=== PATIENT | male | born 1970 | race Caucasian/White ===

== ENCOUNTER 2020-06-28 03:20 | Inpatient (IN) | payer OTHER, SELFPAY ==
[2020-06-28] VITALS (9 sets, daily range): BP systolic 107–155; BP diastolic 66–79; PULSE 87–103; RESP 16–18; TEMP 36.4–36.9; O2SAT 94–97; BMI 40.4
--- NOTE | ~2020-06-28 | XR_ITS ---
EXAMINATION: XR ANKLE, RIGHT CLINICAL INFORMATION: Fall COMPARISON: None TECHNIQUE: AP, lateral, and mortise views of the right ankle. FINDINGS: There is disruption of the ankle mortise with marked widening of the medial clear space to approximately 2.6 cm. There is an oblique fracture of the distal fibular diaphysis with lateral displacement of the distal fragment. Surrounding soft tissue swelling is present. There are mild degenerative changes in the tarsal bones. XR/XR ankle RT min 3V IMPRESSION: Disruption of the ankle mortise with marked widening of the medial clear space. Angulated fracture of the distal fibula.
--- NOTE | ~2020-06-28 | XR_ITS ---
EXAMINATION: XR ANKLE, RIGHT CLINICAL INFORMATION: Post splint reduction COMPARISON: Radiographs from earlier today TECHNIQUE: AP, lateral, and mortise views of the right ankle. FINDINGS: Overlying cast material obscures fine bony detail. There is decreased widening of the medial clear space compared to prior, now approximately 1.6 cm versus 2.6 cm previously. Improved alignment across the oblique fracture of the distal fibula compared to prior. XR/XR ankle RT min 3V IMPRESSION: Interval decrease in widening of the medial clear space compared to prior. Improved alignment across the distal fibular fracture.
--- NOTE | ~2020-06-28 | FL_ITS ---
EXAMINATION: XR FLUOROSCOPY WITH IMAGES CLINICAL INFORMATION: Right ankle fracture COMPARISON: 06/28/2020 TECHNIQUE: Fluoroscopy performed by Dr. Nelson Instr. Fluoroscopy time: 12.9 seconds DAP: 16522.4 mGycm2 Images: 2 FINDINGS: Fluoroscopic images show lateral plate and screw fixation hardware with 2 separate cannulated screws transfixing the distal fibular fracture. There is near-anatomic alignment. FL/FL guidance in OR IMPRESSION: Fluoroscopic guidance for internal fixation of the distal fibular fracture with near-anatomic alignment. Please refer to operative report for further information.
--- NOTE | ~2020-06-28 | XR_ITS ---
EXAMINATION: XR ANKLE, RIGHT CLINICAL INFORMATION: Fracture post repeat reduction COMPARISON: 06/28/2020 TECHNIQUE: 2 views of the right ankle. FINDINGS: Overlying cast material is redemonstrated. Widening of the ankle mortise measures 2.0 cm, increased from 1.6 cm on the most recent exam. Displacement across the oblique fracture of the distal fibula has increased from the most recent prior exam. XR/XR ankle RT 2V IMPRESSION: Compared to the most recent prior exam there is increased widening of the medial clear space and displacement across the distal fibular fracture.
--- NOTE | ~2020-06-28 | XR_ITS ---
EXAMINATION: XR ANKLE, RIGHT CLINICAL INFORMATION: Reduction COMPARISON: Radiographs from earlier today TECHNIQUE: 1 view of the right ankle. FINDINGS: Overlying cast material redemonstrated. Redemonstrated disruption of the ankle mortise with widening of the medial clear space to approximately 2.0 cm, without significant change from most recent prior. Slight displacement across the fracture of the distal fibular diaphysis is noted. XR/XR ankle RT min 3V IMPRESSION: Similar appearance of widening of the ankle mortise compared to most recent prior.
--- NOTE | 2020-06-28 03:37 | ED_ITS ---
HPI - Extremity Injury (Lower) General Chief Complaint: Extremity Injury, Lower Stated Complaint: ankle pain/etoh Time Seen by Provider: 06/28/20 03:27 Source: patient and EMS Mode of arrival: EMS Limitations: no limitations History of Present Illness HPI Narrative: mechanical fall - injuried R ankle, no other injury reported at this time. complaint: ankle injury Onset (ago): minute(s) (just [employer]) Injury: Right: ankle Type of Injury: other (fall) Place: home Severity: moderate Relieving factors: nothing Exacerbating factors: weight bearing and movement Context: fall Associated symptoms: snap/pop sensation Other symptoms: none Related Data Allergies Allergy/AdvReac Type Severity Reaction Status Date / Time penicillin V Allergy Unknown Rash Verified 06/28/20 03:32 PCN Allergy Unknown rash Uncoded 06/28/20 03:32 Review of Systems Review of Systems: Constitutional : No Fever, No Chills ENT/Mouth : No Ear Pain, No Hoarseness, No sore throat Eyes: No Eye Pain, No Swelling, No Redness, No Foreign Body Cardiovascular : No Chest Pain, No SOB Respiratory : No Cough, No Dyspnea Gastrointestinal : No Nausea, No Vomiting, No Diarrhea, No abdominal Pain Genitourinary : No Dysuria, No Hematuria Musculoskeletal : positive joint pain, No Myalgias, No Joint Swelling Skin : No Skin lacerations, No rash Neuro : No Weakness, No Numbness, No Loss of Consciousness, No Dizziness, No Headache Psych : No Anxiety/Panic, No Depression Heme/Lymph: no easy bruising, no Lymphadenopathy Endocrine : No Polyuria, No Polydipsia All other systems reviewed and are negative FORMERLY [facility], [facility] Past Medical History Medical History Type 2 diabetes mellitus Social History Social History (Updated 06/28/20 @ 03:44 by June Castellanos DO) Alcohol intake: current Smoking Status: Never smoker Substance Use Type: Marijuana Advance Directives: No Advance Directives Information Provided: No Physical Exam Vital Signs: Vital Signs: Last Vital Signs Temp 97.5 F 06/28/20 03:27 Pulse 96 06/28/20 03:27 Resp 18 06/28/20 03:27 BP 129/73 06/28/20 03:27 Pulse Ox 96 06/28/20 03:27 Body Mass Index 40.4 Appearance: Alert. Oriented X3. No acute distress. Eyes: Pupils equal, round and reactive to light. ENT: Pharynx normal. Neck: Normal inspection. Neck supple. CVS: Normal heart rate and rhythm. Pulses normal. Respiratory: No respiratory distress. Breath sounds normal. Abdomen: Soft and nontender. Skin: Skin warm and dry. Normal skin color. Normal skin turgor. Extremities: R ankle moderate swelling, distal NV intact, bounding DP pulse, swelling moderate at bilateral malleoli, no prox fib ttp Neuro: Oriented X 3. No motor deficit. No sensory deficit. Course Course Course Narrative: adjusted splint to try to align mortise better. Kush PA will admit patient Procedures Orthopedic Fracture Reduction Fracture #1: Time Out Performed: Yes Side: right Fracture Reduction Location: other (ankle) Analgesia: other (IV dilaudid) Technique: direct manipulation Post Reduction X-rays Demonstrate: acceptable reduction Post-reduction neuro exam: intact Post-reduction vascular exam: intact Splint Applied: Yes Patient Tolerated Procedure: well Orthopedic Splinting/Casting Injury #1: Side: right Lower Extremity Injury Location: ankle Lower Extremity Immobilizer: posterior splint and stirrup splint MDM - Extremity Injury (Lower) MDM Narrative Medical decision making narrative: 50 yo male had mechanical fall tonight while going to bathroom c/o isolated R ankle injury - NV intact at this time will need labs, xray, IV pain medications will reduce ankle in ED Lab Data Result diagrams: 06/28/20 03:47 06/28/20 03:47 Labs: Lab Results 06/28/20 06/28/20 06/28/20 Range/Units 03:47 03:47 03:47 WBC 8.6 (4.8-10.8) X10*3/uL RBC 4.84 (4.60-5.80) X10*6/uL Hgb 15.2 (14.0-18.0) g/dl Hct 43.1 (42-52) % MCV 89.0 (80-98) fL MCH 31.4 (27.0-33.0) pg MCHC 35.3 (31.0-36.0) g/dl RDW 12.9 (11.0-16.0) % Plt Count 280 (160-400) X10*3/uL MPV 9.3 L (9.4-12.4) fL Immature Gran % (Auto) 1.3 H (0.0-0.4) % Neut % (Auto) 66.6 (45-73) % Lymph % (Auto) 22.1 (20-40) % [place] % (Auto) 6.2 (2-11) % Eos % (Auto) 3.3 (0-4) % Baso % (Auto) 0.5 (0-2) % Lymph # (Auto) 1.9 (1.2-4.9) X10*3/uL [place] # (Auto) 0.5 (0.1-1.2) X10*3/uL Eos # (Auto) 0.3 (0.0-0.4) X10*3/uL Baso # (Auto) 0.0 (0.0-0.2) X10*3/uL Abs Immat Gran (auto) 0.11 H (0.00-0.03) X10*3/uL Absolute Neuts (auto) 5.7 (2.0-8.3) X10*3/uL Absolute Nucleated RBC 0.000 (0.0-0.012) X10*3/uL Nucleated RBC % (auto) 0.0 (0.0-0.2) /100WBC PT (10.8-13.0) SEC INR (0.9-1.1) APTT (24.1-38.0) SEC Sodium 136 (135-145) mmol/L Potassium 3.4 (3.3-5.1) mmol/L Chloride 99 (96-108) mmol/L Carbon Dioxide 19 L (22-29) mmol/L Anion Gap 19 (12-20) BUN 11 (9-16) mg/dL Creatinine 0.81 (0.5-1.4) mg/dL Estim Creat Clear Calc 142.1 Estimated GFR > 60 Random Glucose 202 H (60-115) mg/dL Calcium 8.5 (8.4-10.2) mg/dL COVID-19 (OZ) Negative (Negative) COVID-19 Clin Com See Note 06/28/20 Range/Units 03:47 WBC (4.8-10.8) X10*3/uL RBC (4.60-5.80) X10*6/uL Hgb (14.0-18.0) g/dl Hct (42-52) % MCV (80-98) fL MCH (27.0-33.0) pg MCHC (31.0-36.0) g/dl RDW (11.0-16.0) % Plt Count (160-400) X10*3/uL MPV (9.4-12.4) fL Immature Gran % (Auto) (0.0-0.4) % Neut % (Auto) (45-73) % Lymph % (Auto) (20-40) % [place] % (Auto) (2-11) % Eos % (Auto) (0-4) % Baso % (Auto) (0-2) % Lymph # (Auto) (1.2-4.9) X10*3/uL [place] # (Auto) (0.1-1.2) X10*3/uL Eos # (Auto) (0.0-0.4) X10*3/uL Baso # (Auto) (0.0-0.2) X10*3/uL Abs Immat Gran (auto) (0.00-0.03) X10*3/uL Absolute Neuts (auto) (2.0-8.3) X10*3/uL Absolute Nucleated RBC (0.0-0.012) X10*3/uL Nucleated RBC % (auto) (0.0-0.2) /100WBC PT 11.5 (10.8-13.0) SEC INR 1.0 (0.9-1.1) APTT 39.8 H (24.1-38.0) SEC Sodium (135-145) mmol/L Potassium (3.3-5.1) mmol/L Chloride (96-108) mmol/L Carbon Dioxide (22-29) mmol/L Anion Gap (12-20) BUN (9-16) mg/dL Creatinine (0.5-1.4) mg/dL Estim Creat Clear Calc Estimated GFR Random Glucose (60-115) mg/dL Calcium (8.4-10.2) mg/dL COVID-19 (OZ) (Negative) COVID-19 Clin Com Discharge Plan Discharge Clinical Impression: Ankle sprain and strain, Closed fibular fracture, Ankle ligament laxity Patient Disposition: Admitted As Inpatient Instructions: Ankle Fracture (ED) Additional Instructions: no weight bearing wear splint until released
[2020-06-28 03:57] LABS: MANUAL DIFF FLAG NO
[2020-06-28 03:58] LABS: Basophils Percent Auto 0.5 % (0-2); Eosinophils Absolute Auto 0.3 X10*3/uL (0.0-0.4); Eosinophils Percent Auto 3.3 % (0-4); Hematocrit 43.1 % (42-52); Hemoglobin 15.2 g/dl (14.0-18.0); Imm Gran Abs Auto 0.11 X10*3/uL (0.00-0.03); Imm Gran Pct Auto 1.3 % (0.0-0.4); Lymphocytes Absolute Auto 1.9 X10*3/uL (1.2-4.9); Lymphocytes Percent Auto 22.1 % (20-40); Mean Corpuscular HGB Conc 35.3 g/dl (31.0-36.0); Mean Corpuscular Hemoglobin 31.4 pg (27.0-33.0); Mean Platelet Volume 9.3 fL (9.4-12.4); Monocytes Absolute Auto 0.5 X10*3/uL (0.1-1.2); Monocytes Percent Auto 6.2 % (2-11); Neutrophils Absolute Auto 5.7 X10*3/uL (2.0-8.3); Neutrophils Percent Auto 66.6 % (45-73); Platelet Count 280 X10*3/uL (160-400); Red Blood Count 4.84 X10*6/uL (4.60-5.80); Red Cell Distribution Width 12.9 % (11.0-16.0); White Blood Count 8.6 X10*3/uL (4.8-10.8)
[2020-06-28 04:04] LABS: Prothrombin Time 11.5 SEC (10.8-13.0)
[2020-06-28 04:06] LABS: Partial Thromboplastin Time 39.8 SEC (24.1-38.0)
[2020-06-28 04:10] LABS: COVID-19 Test Negative (Negative)
[2020-06-28 04:24] LABS: Blood Urea Nitrogen 11 mg/dL (9-16); Calcium 8.5 mg/dL (8.4-10.2); Carbon Dioxide 19 mmol/L (22-29); Creatinine Clr Calc Pharmacy 142.1; Estimated Glomerular Filt Rate > 60; Glucose Random 202 mg/dL (60-115)
[2020-06-28] MEDS: HYDROmorphone HCl 1 MG/ML SYRINGE IVPUSH ×2 (04:42→06:22)
[2020-06-28] MEDS: ondansetron HCL 4 MG/2 ML VIAL IVPUSH ×2 (04:42→09:55)
[2020-06-28 04:44] LABS: Anion Gap 19 (12-20); Chloride 99 mmol/L (96-108); Potassium 3.4 mmol/L (3.3-5.1); Sodium 136 mmol/L (135-145)
--- NOTE | 2020-06-28 06:11 | PC.NURSE ---
Assisted roberto Lopez with an ankle reduction .this tech applied a posterior and a sugar tongue. splint. pt tolerated procedure well
--- NOTE | 2020-06-28 07:36 | PC.NURSE ---
Late Entry: Since arrival to ED, patient has had right ankle reset 3 times with posterior & sugar splint, applied by this RN, Kenzie (PCT), and with x-ray following each adjustment. Pt tolerated all 3 procedures well, and remains calm/cooperative/pleasant, with maximum of 3 out of 10 pain. Medicated twice with Dilaudid 1mg each, as scanned/documented in EMAR. Vitals stable, remains alert & oriented. Aware of plan to admit with plan for surgery. Admission orders in place, now NPO until further notice. Pt had water while in ED, last drank water around 6am. No food while in ED. Pt aware of NPO status starting now. RN to RN report given to JOSE Handy.
[2020-06-28] MEDS: oxyCODONE HCl Immed Release 5 MG TABLET 10 MG PO ×3 (09:53→21:12)
--- NOTE | 2020-06-28 10:07 | P.HPOP_ITS ---
History of Present Illness History of Present Illness Date of Service: 06/28/20 Chief complaint: Right ankle fracture Narrative: Esequiel Ramirez is a 50 year old male who presented to the ED s/p ankle injury at home. He states he was standing in the kitchen, he does not recall twisting the ankle, but states he was standing and as he shifted his weight he fell. He noticed immediate deformity and pain. Upon examination in the ED along with xrays he was found to have a distal fibular fracture with disruption of the nakle mortise. Reduction performed in the ED with continued instability of the fracture. Due to this the plan was to admit the patient to the orthopedic surgery for further workup and surgical planning. Review of Systems Review of Systems: Yes all other systems are reviewed and are negative PMFSH Past Medical History Medical History Type 2 diabetes mellitus Surgical History Surgical History (Updated 06/28/20 @ 10:11 by Darell Currie PA-C) History of tonsillectomy Social History Social History (Updated 06/28/20 @ 10:11 by Darell Currie PA-C) Alcohol intake: current Alcohol intake frequency: a few times a week Alcohol type: beer Smoking Status: Never smoker Smoked in Last 30 Days: No Use of substances other than those prescribed or required for medical reasons: No Substance Use Type: Marijuana Substance Use Frequency: Socially Advance Directives: No Advance Directives Information Provided: No Current occupational status: employed 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 Meds Allergies Allergy/AdvReac Type Severity Reaction Status Date / Time penicillin V Allergy Unknown Rash Verified 06/28/20 03:32 PCN Allergy Unknown rash Uncoded 06/28/20 03:32 Active Medications: Current Medications Generic Name Dose Route Start Last Admin Trade Name Freq PRN Reason Stop Dose Admin Acetaminophen 650 mg 06/28/20 09:43 Acetaminophen 325 Mg Tablet PO Q6H PRN Pain, Mild (Pain Scale 1-3) Docusate Sodium 100 mg 06/28/20 09:43 Docusate Sodium 100 Mg Capsule PO BID ARMAND Sodium Chloride 1,000 mls @ 80 mls/hr 06/28/20 09:43 IVCONT .[id number] ARMAND Morphine Sulfate 2 mg 06/28/20 09:43 Morphine Sulfate 2 Mg/Ml Cartridge IVPUSH Q2H PRN Pain, Severe (Pain Scale 7-10) Naloxone HCl 0.2 mg 06/28/20 09:43 Naloxone Hcl 0.4 Mg/Ml Vial IVPUSH Q2M PRN Excessive sedation or RR < 8 Ondansetron HCl 4 mg 06/28/20 09:43 06/28/20 09:55 Ondansetron Hcl 4 Mg/2 Ml Vial IVPUSH 4 mg Q8H PRN Administration Nausea Oxycodone HCl 10 mg 06/28/20 10:00 06/28/20 09:53 Oxycodone Hcl Immed Release 5 Mg Tablet PO 10 mg Q6H ARMAND Administration Sodium Chloride 3 ml 06/28/20 16:00 0.9 % Sodium Chloride Flush 3 Ml Syringe IVFLUSH [facility] Home Medications Medication Instructions Recorded Confirmed Last Taken Type albuterol sulfate 2 puff PO Q6H 06/28/20 06/28/20 Unknown History citalopram 0.5 tab PO DAILY 06/28/20 06/28/20 06/27/20 History metformin 1 tab PO BID 06/28/20 06/28/20 06/27/20 History Physical Exam Vital Signs: Vital Signs: Last Vital Signs Temp 97.5 F 06/28/20 03:27 Pulse 94 06/28/20 07:24 Resp 16 06/28/20 07:24 BP 111/67 06/28/20 07:24 Pulse Ox 94 06/28/20 07:24 Body Mass Index 40.4 Const: General: cooperative, healthy appearing, comfortable, no acute distress, well developed and alert Orientation/consciousness: patient o riented x3 HENMT: Head: Yes normal to inspection, Yes normocephalic and Yes atraumatic Eyes: General: appearance normal, both eyes and all related structures Neck: Neck: Yes normal visual inspection and Yes no lymphadenopathy Resp: Effort & Inspection: normal respiratory effort and able to speak in complete sentences Cardio: Rate: regular rate Peripheral pulses: Peripheral pulses 2+ throughout GI: Inspection: Yes normal to inspection Palpation (GI): Soft to palpation Skin: General skin exam: no rashes or lesions noted Neuro: General: patient oriented x3 Extrem: Other: Right ankle notable deformity and bruising with swelling over the ankle. No skin tenting. Sensation and pulses are intact. Right ankle xrays obtained today in ED: Disruption of the ankle mortise with marked widening of the medial clear space. Angulated fracture of the distal fibula. Psych: Appearance: grossly normal Mental Status: mental status grossly normal Results Labs Result Diagrams: 06/28/20 03:47 06/28/20 03:47 Labs: Abnormal lab results 06/28/20 06/28/20 06/28/20 Range/Units 03:47 03:47 03:47 MPV 9.3 L (9.4-12.4) fL Immature Gran % (Auto) 1.3 H (0.0-0.4) % Abs Immat Gran (auto) 0.11 H (0.00-0.03) X10*3/uL APTT 39.8 H (24.1-38.0) SEC Carbon Dioxide 19 L (22-29) mmol/L Random Glucose 202 H (60-115) mg/dL H & H 06/28/20 Range/Units 03:47 Hgb 15.2 (14.0-18.0) g/dl Hct 43.1 (42-52) % Coagulation 06/28/20 Range/Units 03:47 INR 1.0 (0.9-1.1) All other labs normal. Assessment and Plan (1) Closed fibular fracture: Qualifiers: Encounter type: initial encounter Fibula location: distal Fracture morphology: other fracture Laterality: right Qualified Code(s): S82.831A - Other fracture of upper and lower end of right fibula, initial encounter for closed fracture Status: Acute I discussed the case with Dr Ramsay and explained the extent of the injury to the patient and options available which include surgical intervention. I explained the procedure in detail along with the length of recovery and rehab course. I explained the risk, benefits and alternatives. Risk including, but not limited to infection, blood clots, bleeding, non union or malunion and nerve/tissue damage to surrounding areas. I explained the role Diabetes plays on wound healing. I answered all their questions and with their understanding they have consented to move forward with Operative Fixation of the right ankle . The patient have med clearance obtained and NPO after midnight. Patient states PCN allergy was as a kid=rash Procedures Date of Service Date of Service: 06/28/20
[2020-06-28 10:25] LABS: Glucose, Whole Blood 178 mg/dL (60-115)
[2020-06-28] MEDS: Sodium Chloride 0.45 % 1,000 ML 80 ML IVCONT ×2 (10:36→22:00)
--- NOTE | 2020-06-28 11:51 | PM.IMCN ---
History of Present Illness Data of Consult Service Date: 06/28/20 Requesting physician: Darell Currie Primary Care Provider: Pro Manrique MD [facility] Reason for consult: Medical Management 50-year-old man with history of diabetes mellitus, obesity presents after a stopping follow home. He reports that he was cooking some dumplings and suddenly turned wrong and fell to the ground. He denied any loss of consciousness or injury to his head. He reports he had been in his usual state of health recently. He denies chest pain, shortness of breath, nausea, vomiting, diarrhea, headache. Ankle x-ray showed angulated fracture of the distal fibula. Labs all within acceptable limits, vital signs stable though he was noted to be mildly tachycardic and hypertensive likely related to pain. Review of Systems Review of Systems: Denies any recent fever chills or decrease in appetite respiratory denies any shortness of breath coverage production cardiovascular is adjustment of any PND or edema gastrointestinal denies any dysphagia abdominal pain nausea vomiting or diarrhea genitourinary denies any dysuria frequency or hematuria musculoskeletal right ankle pain neuropsych denies any weakness or seizures all other systems reviewed are negative FORMERLY [facility] Medical History (Updated 06/28/20 @ 11:55 by Mary Maravilla NP) Type 2 diabetes mellitus Family History (Updated 06/28/20 @ 11:56 by Mary Maravilla NP) Father Myocardial infarction Surgical History (Updated 06/28/20 @ 10:11 by Darell Currie PA-C) History of tonsillectomy Social History (Updated 06/28/20 @ 10:11 by Darell Currie PA-C) Household Members: Family Housing: Apartment Do you presently have visiting nurse or other home services: No Alcohol intake: current Alcohol intake frequency: a few times a week Alcohol type: beer Smoking Status: Never smoker Smoked in Last 30 Days: No Use of substances other than those prescribed or required for medical reasons: No Substance Use Type: Marijuana Substance Use Frequency: Occasionally Last Used Substance: Days (ago) Last Used Substance Other:: 06/27/20 Currently Displaying Signs/Symptoms of Drug Intoxication Withdrawal: No Any prior treatment program specific to substance use: No Have you been hit, kicked, punched, or otherwise hurt by someone within the past year? 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 Meds Allergies Allergy/AdvReac Type Severity Reaction Status Date / Time penicillin V Allergy Unknown Rash Verified 06/28/20 03:32 PCN Allergy Unknown rash Uncoded 06/28/20 03:32 Active Medications: Current Medications Generic Name Dose Route Start Last Admin Trade Name Freq PRN Reason Stop Dose Admin Acetaminophen 650 mg 06/28/20 09:43 Acetaminophen 325 Mg Tablet PO Q6H PRN Pain, Mild (Pain Scale 1-3) Docusate Sodium 100 mg 06/28/20 09:43 06/28/20 10:37 Docusate Sodium 100 Mg Capsule PO Not Given BID ARMAND Sodium Chloride 1,000 mls @ 80 mls/hr 06/28/20 09:43 06/28/20 10:36 IVCONT 80 mls/hr .[id number] ARMAND Administration Cefazolin Sodium/Dextrose 2 gm in 50 mls @ 100 mls/hr 06/29/20 09:38 Ancef IV 06/29/20 10:07 PREOP ONE Morphine Sulfate 2 mg 06/28/20 09:43 Morphine Sulfate 2 Mg/Ml Cartridge IVPUSH Q2H PRN Pain, Severe (Pain Scale 7-10) Naloxone HCl 0.2 mg 06/28/20 09:43 Naloxone Hcl 0.4 Mg/Ml Vial IVPUSH Q2M PRN Excessive sedation or RR < 8 Ondansetron HCl 4 mg 06/28/20 09:43 06/28/20 09:55 Ondansetron Hcl 4 Mg/2 Ml Vial IVPUSH 4 mg Q8H PRN Administration Nausea Oxycodone HCl 10 mg 06/28/20 10:00 06/28/20 09:53 Oxycodone Hcl Immed Release 5 Mg Tablet PO 10 mg Q6H ARMAND Administration Sodium Chloride 3 ml 06/28/20 16:00 0.9 % Sodium Chloride Flush 3 Ml Syringe IVFLUSH QSHIFT [facility] Home Medications Medication Instructions Recorded Confirmed Last Taken Type albuterol sulfate 2 puff PO Q6H 06/28/20 06/28/20 Unknown History citalopram 0.5 tab PO DAILY 06/28/20 06/28/20 06/27/20 History metformin 1 tab PO BID 06/28/20 06/28/20 06/27/20 History Physical Exam Vital Signs and Narrative: Vital Signs: Last Vital Signs Temp 98.5 F 06/28/20 10:16 Pulse 103 H 06/28/20 10:16 Resp 18 06/28/20 10:16 BP 155/79 H 06/28/20 10:16 Pulse Ox 97 06/28/20 10:16 Body Mass Index 40.4 Appearing in no acute distress head is normocephalic atraumatic eyes pupils are PERRLA sclera is anicteric mouth throat mucous membranes are intact and moist neck is supple no lymphadenopathy, no JVD noted lung sounds are clear to auscultation heart regular rate rhythm, clear S1, S2 positive bowel sounds, abdomen is soft, nontender neuro patient is alert x3, no focal deficits musculoskeletal right leg protective wrapping Results Labs CBC and Chem 7: 06/28/20 03:47 06/28/20 03:47 Labs: Laboratory Results - last 24 hr 06/28/20 06/28/20 06/28/20 03:47 03:47 03:47 MCV 89.0 MCH 31.4 MCHC 35.3 RDW 12.9 Plt Count 280 MPV 9.3 L Immature Gran % (Auto) 1.3 H Neut % (Auto) 66.6 Lymph % (Auto) 22.1 [place] % (Auto) 6.2 Eos % (Auto) 3.3 Baso % (Auto) 0.5 Lymph # (Auto) 1.9 [place] # (Auto) 0.5 Eos # (Auto) 0.3 Baso # (Auto) 0.0 Abs Immat Gran (auto) 0.11 H Absolute Neuts (auto) 5.7 Absolute Nucleated RBC 0.000 Nucleated RBC % (auto) 0.0 PT INR APTT Anion Gap 19 Estim Creat Clear Calc 142.1 Estimated GFR > 60 POC Glucose Random Glucose 202 H Calcium 8.5 COVID-19 (OZ) Negative COVID-19 Clin Com See Note 06/28/20 06/28/20 03:47 10:19 MCV MCH MCHC RDW Plt Count MPV Immature Gran % (Auto) Neut % (Auto) Lymph % (Auto) [place] % (Auto) Eos % (Auto) Baso % (Auto) Lymph # (Auto) [place] # (Auto) Eos # (Auto) Baso # (Auto) Abs Immat Gran (auto) Absolute Neuts (auto) Absolute Nucleated RBC Nucleated RBC % (auto) PT 11.5 INR 1.0 APTT 39.8 H Anion Gap Estim Creat Clear Calc Estimated GFR POC Glucose 178 H Random Glucose Calcium COVID-19 (OZ) COVID-19 Clin Com Imaging Radiologist's Impressions: Impressions Ankle X-Ray 06/28/20 03:27 IMPRESSION: Disruption of the ankle mortise with marked widening of the medial clear space. Angulated fracture of the distal fibula. Ankle X-Ray 06/28/20 04:37 IMPRESSION: Interval decrease in widening of the medial clear space compared to prior. Improved alignment across the distal fibular fracture. Ankle X-Ray 06/28/20 06:01 IMPRESSION: Compared to the most recent prior exam there is increased widening of the medial clear space and displacement across the distal fibular fracture. Ankle X-Ray 06/28/20 06:30 IMPRESSION: Similar appearance of widening of the ankle mortise compared to most recent prior. Assessment and Plan (1) Obesity: Status: Acute 50-year-old man with history of diabetes mellitus, obesity admitted by Orthopedic surgery for right ankle fracture. He will will be taken to the OR tomorrow for likely ORIF. Ankle fracture. Management as per surgical team. Pain management. Diabetes mellitus. Sliding scale, ADA diet, NPO after midnight. Hold metformin for now. Obesity. BMI 40.5. Discussed the importance of weight loss to avoid exacerbation of other medical illnesses. Alcohol use. Patient reports drinking 6-10 beers every other day denies any withdrawal history however will place patient on CIWA protocol. If patient exhibits signs of active withdrawal consider phenobarbital protocol. DVT prophylaxis with mechanical compression boots as per surgical team. Discussed with Dr. Gian Burk code
[2020-06-28 12:06] LABS: Glucose, Whole Blood 184 mg/dL (60-115)
[2020-06-28] MEDS: Insulin Lispro 100 UNIT/ML 3 ML VIAL SUBCUT ×3 (12:20→21:13)
[2020-06-28 15:00] LABS: Glucose, Whole Blood 167 mg/dL (60-115)
[2020-06-28] MEDS: Morphine Sulfate 2 MG/ML CARTRIDGE IVPUSH ×2 (15:28→19:43)
[2020-06-28 16:29] LABS: Glucose, Whole Blood 179 mg/dL (60-115)
[2020-06-28 20:28] LABS: Glucose, Whole Blood 157 mg/dL (60-115)
[2020-06-28] MEDS: Docusate Sodium 100 MG CAPSULE PO (21:12)
[2020-06-29] VITALS (15 sets, daily range): BP systolic 104–141; BP diastolic 53–83; PULSE 78–101; RESP 16–20; TEMP 36.2–37.4; O2SAT 93–98; BMI 40.4
[2020-06-29] MEDS: Morphine Sulfate 2 MG/ML CARTRIDGE IVPUSH ×5 (00:17→19:48)
[2020-06-29 06:34] LABS: MANUAL DIFF FLAG NO
[2020-06-29 06:47] LABS: Basophils Percent Auto 0.3 % (0-2); Eosinophils Absolute Auto 0.1 X10*3/uL (0.0-0.4); Eosinophils Percent Auto 1.1 % (0-4); Hematocrit 40.3 % (42-52); Hemoglobin 13.8 g/dl (14.0-18.0); Imm Gran Abs Auto 0.07 X10*3/uL (0.00-0.03); Imm Gran Pct Auto 0.6 % (0.0-0.4); Mean Corpuscular HGB Conc 34.2 g/dl (31.0-36.0); Mean Corpuscular Hemoglobin 30.8 pg (27.0-33.0); Mean Platelet Volume 9.4 fL (9.4-12.4); Monocytes Absolute Auto 0.9 X10*3/uL (0.1-1.2); Monocytes Percent Auto 8.4 % (2-11); Neutrophils Absolute Auto 8.8 X10*3/uL (2.0-8.3); Neutrophils Percent Auto 80.6 % (45-73); Platelet Count 268 X10*3/uL (160-400); Red Blood Count 4.48 X10*6/uL (4.60-5.80); Red Cell Distribution Width 13.2 % (11.0-16.0); White Blood Count 10.9 X10*3/uL (4.8-10.8)
[2020-06-29 06:59] LABS: Blood Urea Nitrogen 6 mg/dL (9-16); Calcium 8.8 mg/dL (8.4-10.2); Creatinine Clr Calc Pharmacy 138.7; Estimated Glomerular Filt Rate > 60; Glucose Fasting 181 mg/dL (60-99)
[2020-06-29 07:17] LABS: Anion Gap 12 (12-20); Carbon Dioxide 28 mmol/L (22-29); Chloride 100 mmol/L (96-108); Potassium 4.8 mmol/L (3.3-5.1); Sodium 135 mmol/L (135-145)
[2020-06-29] MEDS: 0.9 % Sodium Chloride Flush 3 ML SYRINGE IVFLUSH (07:36)
[2020-06-29 07:46] LABS: Glucose, Whole Blood 179 mg/dL (60-115)
[2020-06-29] MEDS: oxyCODONE HCl Immed Release 5 MG TABLET 10 MG PO ×3 (09:23→21:15)
[2020-06-29] MEDS: Sodium Chloride 0.45 % 1,000 ML 80 ML IVCONT (09:24)
--- NOTE | 2020-06-29 09:50 | MHC.SHP ---
Pre-Procedural Eval Section A The patient is an INPATIENT: Yes Section B Chief Complaint: Right ankle fracture Allergies: Allergies Allergy/AdvReac Type Severity Reaction Status Date / Time penicillin V Allergy Unknown Rash Verified 06/28/20 03:32 PCN Allergy Unknown rash Uncoded 06/28/20 03:32 Plan I have reviewed the history and physical and performed a pertinent physical examination on my patient. No changes have occurred unless specified.
--- NOTE | 2020-06-29 10:13 | MHC.CM.PN ---
PATIENT LIVES ALONE. HIS MOTHER AND SISTER LIVE NEXT DOOR AND ARE AVAILABLE IF NEEDED UPON DISCHARGE. 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 CASE MANAGEMENT FOLLOWING FOR DISCHARGE PLANS.
--- NOTE | 2020-06-29 11:20 | HO.ANESPROP2 ---
[facility] Active Problems Active Problems: All Active Problems (Updated 06/28/20 @ 11:55 by Mary Maravilla NP) Obesity (Acute) Ankle sprain and strain (Acute) Closed fibular fracture (Acute) Ankle ligament laxity (Acute) Past Medical History Medical History Type 2 diabetes mellitus Family History Family History Father Myocardial infarction Surgical History Surgical History History of tonsillectomy Social History Social History Household Members: Family Housing: Apartment Do you presently have visiting nurse or other home services: No Alcohol intake: current Alcohol intake frequency: a few times a week Alcohol type: beer Smoking Status: Never smoker Smoked in Last 30 Days: No Use of substances other than those prescribed or required for medical reasons: No Substance Use Type: Marijuana Substance Use Frequency: Occasionally Last Used Substance: Days (ago) Last Used Substance Other:: 06/27/20 Currently Displaying Signs/Symptoms of Drug Intoxication Withdrawal: No Any prior treatment program specific to substance use: No Have you been hit, kicked, punched, or otherwise hurt by someone within the past year? 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 Meds Allergies Allergy/AdvReac Type Severity Reaction Status Date / Time penicillin V Allergy Unknown Rash Verified 06/28/20 03:32 PCN Allergy Unknown rash Uncoded 06/28/20 03:32 Active Medications: Current Medications Generic Name Dose Route Start Last Admin Trade Name Freq PRN Reason Stop Dose Admin Acetaminophen 650 mg 06/28/20 09:43 Acetaminophen 325 Mg Tablet PO Q6H PRN Pain, Mild (Pain Scale 1-3) Albuterol Sulfate 2 puff 06/29/20 08:45 06/29/20 09:12 Albuterol Sulfate 90 Mcg 8 Gm Inhaler INHALE Not Given Q6H [facility] Docusate Sodium 100 mg 06/28/20 09:43 06/29/20 07:36 Docusate Sodium 100 Mg Capsule PO Not Given BID [facility] Sodium Chloride 1,000 mls @ 80 mls/hr 06/28/20 09:43 06/29/20 09:24 IVCONT 80 mls/hr .[id number] [facility] Administration Insulin Human Lispro 0 unit 06/28/20 16:30 06/29/20 07:37 Insulin Lispro 100 Unit/Ml 3 Ml Vial SUBCUT Not Given QIDACHS [facility] Protocol Morphine Sulfate 2 mg 06/28/20 09:43 06/29/20 07:41 Morphine Sulfate 2 Mg/Ml Cartridge IVPUSH 2 mg Q2H PRN Administration Pain, Severe (Pain Scale 7-10) Naloxone HCl 0.2 mg 06/28/20 09:43 Naloxone Hcl 0.4 Mg/Ml Vial IVPUSH Q2M PRN Excessive sedation or RR < 8 Ondansetron HCl 4 mg 06/28/20 09:43 06/28/20 09:55 Ondansetron Hcl 4 Mg/2 Ml Vial IVPUSH 4 mg Q8H PRN Administration Nausea Oxycodone HCl 10 mg 06/28/20 10:00 06/29/20 09:23 Oxycodone Hcl Immed Release 5 Mg Tablet PO 10 mg Q6H [facility] Administration Ropinirole HCl 0.5 mg 06/29/20 21:00 Ropinirole Hcl 0.5 Mg Tablet PO BEDTIME [facility] Sodium Chloride 3 ml 06/28/20 16:00 06/29/20 07:36 0.9 % Sodium Chloride Flush 3 Ml Syringe IVFLUSH 3 ml QSHIFT [facility] Administration Home Medications Medication Instructions Recorded Confirmed Last Taken Type albuterol sulfate 2 puff PO Q6H 06/28/20 06/28/20 Unknown History citalopram 0.5 tab PO DAILY 06/28/20 06/28/20 06/27/20 History metformin 1 tab PO BID 06/28/20 06/28/20 06/27/20 History Exam Exam Date and Time: June 29, 2020 112 Height,Weight and Vital Signs: Height 5 ft 9 in Weight 124.284 kg Last Vital Signs Temp 97.6 F 06/29/20 07:40 Pulse 94 06/29/20 07:40 Resp 17 06/29/20 07:40 BP 135/54 L 06/29/20 07:40 Pulse Ox 94 06/29/20 07:40 Pertinent Lab Results Pertinent Lab Results: Laboratory Tests 06/28/20 06/28/20 06/28/20 03:47 03:47 03:47 WBC 8.6 RBC 4.84 Hgb 15.2 Hct 43.1 MCV 89.0 MCH 31.4 MCHC 35.3 RDW 12.9 Plt Count 280 MPV 9.3 L Immature Gran % (Auto) 1.3 H Neut % (Auto) 66.6 Lymph % (Auto) 22.1 [place] % (Auto) 6.2 Eos % (Auto) 3.3 Baso % (Auto) 0.5 Lymph # (Auto) 1.9 [place] # (Auto) 0.5 Eos # (Auto) 0.3 Baso # (Auto) 0.0 Abs Immat Gran (auto) 0.11 H Absolute Neuts (auto) 5.7 Absolute Nucleated RBC 0.000 Nucleated RBC % (auto) 0.0 PT INR APTT Sodium 136 Potassium 3.4 Chloride 99 Carbon Dioxide 19 L Anion Gap 19 BUN 11 Creatinine 0.81 Estim Creat Clear Calc 142.1 Estimated GFR > 60 POC Glucose Random Glucose 202 H Fasting Glucose Calcium 8.5 COVID-19 (OZ) Negative COVID-19 Clin Com See Note 06/28/20 06/28/20 06/28/20 03:47 10:19 12:02 WBC RBC Hgb Hct MCV MCH MCHC RDW Plt Count MPV Immature Gran % (Auto) Neut % (Auto) Lymph % (Auto) [place] % (Auto) Eos % (Auto) Baso % (Auto) Lymph # (Auto) [place] # (Auto) Eos # (Auto) Baso # (Auto) Abs Immat Gran (auto) Absolute Neuts (auto) Absolute Nucleated RBC Nucleated RBC % (auto) PT 11.5 INR 1.0 APTT 39.8 H Sodium Potassium Chloride Carbon Dioxide Anion Gap BUN Creatinine Estim Creat Clear Calc Estimated GFR POC Glucose 178 H 184 H Random Glucose Fasting Glucose Calcium COVID-19 (OZ) COVID-19 Clin Com 06/28/20 06/28/20 06/28/20 14:56 16:23 20:16 WBC RBC Hgb Hct MCV MCH MCHC RDW Plt Count MPV Immature Gran % (Auto) Neut % (Auto) Lymph % (Auto) [place] % (Auto) Eos % (Auto) Baso % (Auto) Lymph # (Auto) [place] # (Auto) Eos # (Auto) Baso # (Auto) Abs Immat Gran (auto) Absolute Neuts (auto) Absolute Nucleated RBC Nucleated RBC % (auto) PT INR APTT Sodium Potassium Chloride Carbon Dioxide Anion Gap BUN Creatinine Estim Creat Clear Calc Estimated GFR POC Glucose 167 H 179 H 157 H Random Glucose Fasting Glucose Calcium COVID-19 (OZ) COVID-19 [place] 06/29/20 06/29/20 06/29/20 06:11 06:11 07:38 WBC 10.9 H RBC 4.48 L Hgb 13.8 L Hct 40.3 L MCV 90.0 MCH 30.8 MCHC 34.2 RDW 13.2 Plt Count 268 MPV 9.4 Immature Gran % (Auto) 0.6 H Neut % (Auto) 80.6 H Lymph % (Auto) 9.0 L [place] % (Auto) 8.4 Eos % (Auto) 1.1 Baso % (Auto) 0.3 Lymph # (Auto) 1.0 L [place] # (Auto) 0.9 Eos # (Auto) 0.1 Baso # (Auto) 0.0 Abs Immat Gran (auto) 0.07 H Absolute Neuts (auto) 8.8 H Absolute Nucleated RBC 0.000 Nucleated RBC % (auto) 0.0 PT INR APTT Sodium 135 Potassium 4.8 D Chloride 100 Carbon Dioxide 28 Anion Gap 12 BUN 6 L Creatinine 0.83 Estim Creat Clear Calc 138.7 Estimated GFR > 60 POC Glucose 179 H Random Glucose Fasting Glucose 181 H Calcium 8.8 COVID-19 (OZ) COVID-19 [place] [employer] Mallampati Class: IV TM Dist: >3cm Neck ROM: Full Loose/Missing/Broken Teeth: No Heart: RRR Lungs: NL Other: long thick santana Assessment and Plan Assessment Anesthesia Assessment: Anesthesia Plan Discussed and Chart Reviewed Final Anesthetic Review NPO: Yes ASA Class: III Final Preanesthetic Review: No Changes in Pt Med Stat, Meds/Allgs Chart Reviewed, Consent Obtained/Reviewed and Anes Risks/Benef Reviewed Patient Risk: High Procedure Risk: Low Anesthetic Plan Anesthetic Plan: GA and Regional Block Disposition: Standard PACU
[2020-06-29 11:53] LABS: Glucose, Whole Blood 194 mg/dL (60-115)
[2020-06-29] MEDS: Lactated Ringers 1,000 ML 100 ML IVCONT (12:40)
--- NOTE | 2020-06-29 12:41 | P.PNIM_ITS ---
Subjective Subjective Date of Service: 06/29/20 Interval History: A the patient was seen and evaluated this morning Laying in bed, feels comfortable overall but complain of RLE pain Denies any fever, chills or shortness of breath No reported other overnight events. Systemic review: No fever, chills or weakness No chest pain, palpitation No shortness of breath or coughing No abdominal pain, nausea or vomiting No urinary symptoms No any rash or wounds Physical Exam Vital Signs: Vital Signs: Last Vital Signs Temp 97.7 F 06/29/20 12:12 Pulse 97 06/29/20 12:12 Resp 20 06/29/20 12:12 BP 141/80 H 06/29/20 12:12 Pulse Ox 96 06/29/20 12:12 Body Mass Index 40.4 Const: Other: Constitutional : Alert, oriented, not in distress Neck : Normal inspection, Supple Cardiovascular : RRR, S1 S2, no lower extremity edema Respiratory : Good bilateral air entry, no crackles, wheezes or rhonchi Gastrointestinal: soft, lax, Normal bowel sounds, Non tender Skin : Warm/Dry, No rash MS: RLE ankle in cast, warm toes Neurological : Alert & oriented x3, No focal deficit Objective Data Current Medications Generic Name Dose Route Start Last Admin Trade Name Freq PRN Reason Stop Dose Admin Acetaminophen 650 mg 06/28/20 09:43 Acetaminophen 325 Mg Tablet PO Q6H PRN Pain, Mild (Pain Scale 1-3) Albuterol Sulfate 2 puff 06/29/20 12:00 06/29/20 11:34 Albuterol Sulfate 90 Mcg 8 Gm Inhaler INHALE Not Given RQ6H [facility] Docusate Sodium 100 mg 06/28/20 09:43 06/29/20 07:36 Docusate Sodium 100 Mg Capsule PO Not Given BID [facility] Sodium Chloride 1,000 mls @ 80 mls/hr 06/28/20 09:43 06/29/20 09:24 IVCONT 80 mls/hr .[id number] [facility] Administration Insulin Human Lispro 0 unit 06/28/20 16:30 06/29/20 07:37 Insulin Lispro 100 Unit/Ml 3 Ml Vial SUBCUT Not Given QIDACHS [facility] Protocol Morphine Sulfate 2 mg 06/28/20 09:43 06/29/20 11:30 Morphine Sulfate 2 Mg/Ml Cartridge IVPUSH 2 mg Q2H PRN Administration Pain, Severe (Pain Scale 7-10) Naloxone HCl 0.2 mg 06/28/20 09:43 Naloxone Hcl 0.4 Mg/Ml Vial IVPUSH Q2M PRN Excessive sedation or RR < 8 Ondansetron HCl 4 mg 06/28/20 09:43 06/28/20 09:55 Ondansetron Hcl 4 Mg/2 Ml Vial IVPUSH 4 mg Q8H PRN Administration Nausea Oxycodone HCl 10 mg 06/28/20 10:00 06/29/20 09:23 Oxycodone Hcl Immed Release 5 Mg Tablet PO 10 mg Q6H [facility] Administration Ropinirole HCl 0.5 mg 06/29/20 21:00 Ropinirole Hcl 0.5 Mg Tablet PO BEDTIME [facility] Sodium Chloride 3 ml 06/28/20 16:00 06/29/20 07:36 0.9 % Sodium Chloride Flush 3 Ml Syringe IVFLUSH 3 ml QSHIFT [facility] Administration Labs CBC & Chem 7: 06/29/20 06:11 06/29/20 06:11 Assessment and Plan (1) Obesity: Status: Acute Assessment and Plan: 50-year-old man with history of diabetes mellitus, obesity admitted by Orthopedic surgery for right ankle fracture. He will will be taken to the OR tomorrow for likely ORIF. Ankle fracture Management as per surgical team. Pain management. Diabetes mellitus Sliding scale, ADA diet Hold metformin for now. Obesity. BMI 40.5. Discussed the importance of weight loss to avoid exacerbation of other medical illnesses. Alcohol use Patient reports drinking 6-10 beers every other day denies any withdrawal history CIWA protocol If patient exhibits signs of active withdrawal consider phenobarbital protocol. Restless leg To start Roprinole bedtime DVT prophylaxis mechanical compression boots
--- NOTE | 2020-06-29 13:47 | P.OP_ITS ---
Operative Note Operative Note Date of Service: 06/29/20 Narrative: OPERATIVE PROCEDURE NOTE SURGEON: Dr. Nelson (Paulette) Instrum LIVESTOCK EXHIBITOR: Darell GUTIERREZ PREOP DIAGNOSIS: By malleolar fracture equivalent right ankle POSTOP DIAGNOSIS: same OPERATIVE PROCEDURE: operative fixation right ankle with open reduction and internal fixation CLINICAL NOTE: this gentleman suffered an injury in his own kitchen on the date of his mission. He is admitted to the emergency department where the above noted injury was found. Therefore after explaining response and alternatives and answering all his questions it was mutually agreed upon care following procedure OPERATIVE PROCEDURE under a local block and general anesthetic the patient placed supine on the op erating table. A pneumatic tourniquet cuff was placed around the upper right thigh inflated to 300 mm of mercury at the beginning case. The right foot and ankle was then prepped and draped in standard fashion. Surgical time-out was then performed. Patient's identified. Site confirmed. Procedure confirmed. Medical and allergy history were reviewed. Preoperative antibiotics were given. DVT prophylaxis in place. All other items discussed and agreed upon. Under fluoroscopy with the mini C-arm a closed reduction could easily performed. The right foot and ankle over then prepped and draped in standard fashion with the right foot free. A standard lateral approach to the lateral malleolus was performed. Hemostasis was achieved along the waist electrocautery. He was divided down to the level of the fibula were the soft tissue elevated subperiosteal E in standard fashion. The short oblique fracture was identified. He was curetted clear of clot. He was then irrigated fully. An anatomical reduction was then performed. Two interfragmentary screws were then placed in standard fashion. This brought the fracture together very nicely and firmly. Following this a small anatomical fibular plate was placed. Distally of the the most distal hole was drilled measured and a locking screw inserted. The 2nd most proximal screw was then drilled measured and a cancellous screw was inserted with excellent purchase bring the plate to the side of the fibula. Distally the most distal 3 holes were then drilled measured and a locking screw was inserted. And at the proximal and the the 2 holes were drilled measured and appropriate length cancellous screws were inserted with excellent purchase. Imaging with the mini C-arm was then taken in the AP and lateral plane which alyssa wed the mortise to be reduced. The the fibula anatomically reduced with the hardware all in place and therefore proceeded to closure. Wound was thoroughly irrigated deep tissue and subcutaneous tissue approximated using a 2 0 Dexon. Skin was closed with ozzie. Sterile dressing was then applied. Tourniquet let down total tourniquet time of 34 minutes. The foot was then placed in a posterior slab with the foot at 90 degrees. The patient then had the anesthesia reversed. They were transferred supine to the room bed then taken to recovery room in good condition. Intraoperatively there was 20 cc blood loss no complications
[2020-06-29 16:32] LABS: Glucose, Whole Blood 167 mg/dL (60-115)
[2020-06-29] MEDS: Insulin Lispro 100 UNIT/ML 3 ML VIAL SUBCUT ×2 (17:39→21:16)
[2020-06-29] MEDS: ceFAZolin Sodium/Dextrose,Iso 2 GM/50 ML PIGGYBACK IV (18:36)
[2020-06-29] MEDS: rOPINIRole HCL 0.5 MG TABLET PO (19:50)
[2020-06-29] MEDS: Docusate Sodium 100 MG CAPSULE PO (19:50)
[2020-06-29 20:24] LABS: Glucose, Whole Blood 156 mg/dL (60-115)
[2020-06-30] VITALS (7 sets, daily range): BP systolic 118–136; BP diastolic 67–85; PULSE 93–110; RESP 16–20; TEMP 36.3–37.6; O2SAT 94–97
[2020-06-30] MEDS: Sodium Chloride 0.45 % 1,000 ML 80 ML IVCONT ×2 (00:31→12:05)
[2020-06-30] MEDS: 0.9 % Sodium Chloride Flush 3 ML SYRINGE IVFLUSH ×2 (00:31)
[2020-06-30] MEDS: oxyCODONE HCl Immed Release 5 MG TABLET 10 MG PO ×4 (03:19→21:05)
--- NOTE | 2020-06-30 07:39 | PM.PNORT ---
Subjective Subjective Date of Service: 06/30/20 Interval history: POD 1 s/p ORIF right ankle. No overnight events Resting in bed with splint intact, elevating the leg. Pain is better than prior to surgery, but still uncomfortable. No concerns. Physical Exam Vital Signs: Vital Signs: Last Vital Signs Temp 97.9 F 06/30/20 07:18 Pulse 97 06/30/20 07:18 Resp 16 06/30/20 07:18 BP 118/67 06/30/20 07:18 Pulse Ox 95 06/30/20 07:18 Body Mass Index 40.4 Const: General: cooperative, healthy appearing and no acute distress Resp: Effort & Inspection: normal respiratory effort and able to speak in complete sentences Cardio: Rate: regular rate Peripheral pulses: Peripheral pulses 2+ throughout GI: Palpation (GI): Soft to palpation Skin: General skin exam: no rashes or lesions noted Extrem: Other: Right ankle splint intact, sensation to toes intact, motor intact. Cap refill intact. Progress Note: A&P Assessment and plan (1) Status post ORIF of fracture of ankle: Status: Acute Assessment and Plan: Continue pain mgmnt compression boots begin PT for Right ankle NWB, splint, elevate above heart level Dispo planning-Pending PT eval, pain mgmnt Fall Risk Details Current Medications: Current Medications Generic Name Dose Route Start Last Admin Trade Name Freq PRN Reason Stop Dose Admin Acetaminophen 650 mg 06/28/20 09:43 Acetaminophen 325 Mg Tablet PO Q6H PRN Pain, Mild (Pain Scale 1-3) Albuterol Sulfate 2 puff 06/29/20 12:00 06/30/20 06:19 Albuterol Sulfate 90 Mcg 8 Gm Inhaler INHALE Not Given RQ6H [facility] Docusate Sodium 100 mg 06/28/20 09:43 06/29/20 19:50 Docusate Sodium 100 Mg Capsule PO 100 mg BID [facility] Administration Hydromorphone HCl 0.25 mg 06/29/20 14:20 Hydromorphone Hcl 0.5 Mg/0.5 Ml Syringe IVPUSH Q5M PRN Pain, Severe (Pain Scale 7-10) Sodium Chloride 1,000 mls @ 80 mls/hr 06/28/20 09:43 06/30/20 00:31 IVCONT 80 mls/hr .[id number] [facility] Administration Promethazine HCl 12.5 mg/ 50.5 mls @ 202 mls/hr 06/29/20 14:20 Sodium Chloride IV ONCE PRN Nausea and Vomiting Insulin Human Lispro 0 unit 06/28/20 16:30 06/29/20 21:16 Insulin Lispro 100 Unit/Ml 3 Ml Vial SUBCUT 2 unit QIDACHS [facility] Administration Protocol Ketorolac Tromethamine 30 mg 06/29/20 14:20 Ketorolac Tromethamine 30 Mg/Ml Vial IVPUSH ONCE PRN Pain, Moderate (Pain Scale 4-6 Morphine Sulfate 2 mg 06/28/20 09:43 06/29/20 19:48 Morphine Sulfate 2 Mg/Ml Cartridge IVPUSH 2 mg Q2H PRN Administration Pain, Severe (Pain Scale 7-10) Naloxone HCl 0.2 mg 06/28/20 09:43 Naloxone Hcl 0.4 Mg/Ml Vial IVPUSH Q2M PRN Excessive sedation or RR < 8 Ondansetron HCl 4 mg 06/28/20 09:43 06/28/20 09:55 Ondansetron Hcl 4 Mg/2 Ml Vial IVPUSH 4 mg Q8H PRN Administration Nausea Ondansetron HCl 4 mg 06/29/20 14:20 Ondansetron Hcl 4 Mg/2 Ml Vial IVPUSH ONCE PRN Nausea and Vomiting Oxycodone HCl 10 mg 06/28/20 10:00 06/30/20 03:19 Oxycodone Hcl Immed Release 5 Mg Tablet PO 10 mg Q6H [facility] Administration Oxycodone HCl 5 mg 06/29/20 14:20 Oxycodone Hcl Immed Release 5 Mg Tablet PO ONCE PRN Pain, Severe (Pain Scale 7-10) Ropinirole HCl 0.5 mg 06/29/20 21:00 06/29/20 19:50 Ropinirole Hcl 0.5 Mg Tablet PO 0.5 mg BEDTIME [facility] Administration Sodium Chloride 3 ml 06/28/20 16:00 06/30/20 07:27 0.9 % Sodium Chloride Flush 3 Ml Syringe IVFLUSH Not Given QSHIFT [facility] Sodium Chloride 3 ml 06/29/20 16:00 06/30/20 00:31 0.9 % Sodium Chloride Flush 3 Ml Syringe IVFLUSH 3 ml QSHIFT [facility] Administration Time Spent With Patient Time: Total time spent is greater than 50% in coordination of care (as documented) at patient's floor/unit and/or counseling patient: Time with patient: less than 15 minutes Procedures Date of Service Date of Service: 06/30/20
[2020-06-30 08:16] LABS: Glucose, Whole Blood 165 mg/dL (60-115)
[2020-06-30] MEDS: Insulin Lispro 100 UNIT/ML 3 ML VIAL SUBCUT ×4 (08:39→21:22)
[2020-06-30] MEDS: Docusate Sodium 100 MG CAPSULE PO ×2 (10:14→21:04)
--- NOTE | 2020-06-30 11:05 | HO.PM.IMPN ---
Subjective Subjective Date of Service: 06/30/20 Interval History: A the patient was seen and evaluated this morning Laying in bed, pain much better today after the surgery Denies any fever, chills or shortness of breath No reported other overnight events. Systemic review: No fever, chills or weakness No chest pain, palpitation No shortness of breath or coughing No abdominal pain, nausea or vomiting No urinary symptoms No any rash or wounds Physical Exam Vital Signs: Vital Signs: Last Vital Signs Temp 99.7 F 06/30/20 11:00 Pulse 110 H 06/30/20 11:00 Resp 17 06/30/20 11:00 BP 136/76 06/30/20 11:00 Pulse Ox 95 06/30/20 11:00 Body Mass Index 40.4 Const: Other: Constitutional : Alert, oriented, not in distress Neck : Normal inspection, Supple Cardiovascular : RRR, S1 S2, no lower extremity edema Respiratory : Good bilateral air entry, no crackles, wheezes or rhonchi Gastrointestinal: soft, lax, Normal bowel sounds, Non tender Skin : Warm/Dry, No rash MS: RLE ankle in cast, warm toes Neurological : Alert & oriented x3, No focal deficit Objective Data Current Medications Generic Name Dose Route Start Last Admin Trade Name Freq PRN Reason Stop Dose Admin Acetaminophen 650 mg 06/28/20 09:43 Acetaminophen 325 Mg Tablet PO Q6H PRN Pain, Mild (Pain Scale 1-3) Albuterol Sulfate 2 puff 06/29/20 12:00 06/30/20 06:19 Albuterol Sulfate 90 Mcg 8 Gm Inhaler INHALE Not Given RQ6H [facility] Docusate Sodium 100 mg 06/28/20 09:43 06/30/20 10:14 Docusate Sodium 100 Mg Capsule PO 100 mg BID [facility] Administration Hydromorphone HCl 0.25 mg 06/29/20 14:20 Hydromorphone Hcl 0.5 Mg/0.5 Ml Syringe IVPUSH Q5M PRN Pain, Severe (Pain Scale 7-10) Sodium Chloride 1,000 mls @ 80 mls/hr 06/28/20 09:43 06/30/20 00:31 IVCONT 80 mls/hr .[id number] [facility] Administration Promethazine HCl 12.5 mg/ 50.5 mls @ 202 mls/hr 06/29/20 14:20 Sodium Chloride IV ONCE PRN Nausea and Vomiting Insulin Human Lispro 0 unit 06/28/20 16:30 06/30/20 08:39 Insulin Lispro 100 Unit/Ml 3 Ml Vial SUBCUT 2 unit QIDACHS [facility] Administration Protocol Ketorolac Tromethamine 30 mg 06/29/20 14:20 Ketorolac Tromethamine 30 Mg/Ml Vial IVPUSH ONCE PRN Pain, Moderate (Pain Scale 4-6 Morphine Sulfate 2 mg 06/28/20 09:43 06/29/20 19:48 Morphine Sulfate 2 Mg/Ml Cartridge IVPUSH 2 mg Q2H PRN Administration Pain, Severe (Pain Scale 7-10) Naloxone HCl 0.2 mg 06/28/20 09:43 Naloxone Hcl 0.4 Mg/Ml Vial IVPUSH Q2M PRN Excessive sedation or RR < 8 Ondansetron HCl 4 mg 06/28/20 09:43 06/28/20 09:55 Ondansetron Hcl 4 Mg/2 Ml Vial IVPUSH 4 mg Q8H PRN Administration Nausea Ondansetron HCl 4 mg 06/29/20 14:20 Ondansetron Hcl 4 Mg/2 Ml Vial IVPUSH ONCE PRN Nausea and Vomiting Oxycodone HCl 10 mg 06/28/20 10:00 06/30/20 10:14 Oxycodone Hcl Immed Release 5 Mg Tablet PO 10 mg Q6H [facility] Administration Oxycodone HCl 5 mg 06/29/20 14:20 Oxycodone Hcl Immed Release 5 Mg Tablet PO ONCE PRN Pain, Severe (Pain Scale 7-10) Ropinirole HCl 0.5 mg 06/29/20 21:00 06/29/20 19:50 Ropinirole Hcl 0.5 Mg Tablet PO 0.5 mg BEDTIME [facility] Administration Sodium Chloride 3 ml 06/28/20 16:00 06/30/20 07:27 0.9 % Sodium Chloride Flush 3 Ml Syringe IVFLUSH Not Given QSHIFT [facility] Sodium Chloride 3 ml 06/29/20 16:00 06/30/20 09:09 0.9 % Sodium Chloride Flush 3 Ml Syringe IVFLUSH Not Given QSHIFT [facility] Labs CBC & Chem 7: 06/29/20 06:11 06/29/20 06:11 Assessment and Plan (1) Obesity: Status: Acute Assessment and Plan: 50-year-old man with history of diabetes mellitus, obesity admitted by Orthopedic surgery for right ankle fracture. He will will be taken to the OR tomorrow for likely ORIF. Ankle fracture Management as per orthopedic team. Pain management Diabetes mellitus Sliding scale, ADA diet Hold metformin for now. Obesity. BMI 40.5. Discussed the importance of weight loss to avoid exacerbation of other medical illnesses. Alcohol use Patient reports drinking 6-10 beers every other day denies any withdrawal history CIWA protocol, no signs of withdrawal up to this point Restless leg To start Roprinole bedtime DVT prophylaxis mechanical compression boots
[2020-06-30 11:27] LABS: Glucose, Whole Blood 190 mg/dL (60-115)
--- NOTE | 2020-06-30 14:31 | HO.POSTANES ---
Post Anesthesia Evaluation Post Anesthesia Evaluation Vital Signs: Vital Signs Temp Pulse Resp BP Pulse Ox 06/30/20 11:00 99.7 F 110 H 17 136/76 95 06/30/20 07:18 97.9 F 97 16 118/67 95 06/30/20 03:35 97.3 F 103 H 20 122/69 94 Anesthesia: General Mental Status: Awake Pain Control: Satisfactory Nausea/Vomiting: None Hydration: Adequate Anesthesia-Related Issues: No Anes. Related Issues
[2020-06-30 16:33] LABS: Glucose, Whole Blood 158 mg/dL (60-115)
[2020-06-30] MEDS: rOPINIRole HCL 0.5 MG TABLET PO (21:04)
[2020-06-30 21:10] LABS: Glucose, Whole Blood 167 mg/dL (60-115)
[2020-07-01] MEDS: Sodium Chloride 0.45 % 1,000 ML 80 ML IVCONT (00:18)
[2020-07-01] MEDS: oxyCODONE HCl Immed Release 5 MG TABLET PO (00:21)
[2020-07-01 04:00] VITALS: BP 117/65; PULSE 90; RESP 19; TEMP 36.4; O2SAT 95
[2020-07-01] MEDS: oxyCODONE HCl Immed Release 5 MG TABLET 10 MG PO (04:07)
[2020-07-01 07:21] VITALS: BP 157/92; PULSE 77; RESP 16; TEMP 36.1; O2SAT 97
--- NOTE | 2020-07-01 07:49 | P.DS_ITS ---
DS: Providers Provider Date of Service: 07/01/20 Date of admission: 06/28/20 08:34 Primary care physician: Pro Manrique MD Consults: 06/28/20 10:10 Consult to Hospitalist Routine Consulting Provider: Hospitalist Reason For Exam: pre op clearance DS: Diagnosis Discharge Diagnosis (1) Status post ORIF of fracture of ankle: Status: Acute Problem details: Mr. Ramirez is a 50 yo male who presented to the ED with an injury he sustained to his right ankle. He sustained a distal fibular fracture with displacement of the mortise. Admission to orthopedic service and booked for surgical planning. DS: Medications Discharge Medications Home Medications: Home Medications Medication Instructions Recorded Confirmed albuterol sulfate 2 puff PO Q6H 06/28/20 06/28/20 citalopram 0.5 tab PO DAILY 06/28/20 06/28/20 metformin 1 tab PO BID 06/28/20 06/28/20 Previous Rx's Medication Instructions Recorded acetaminophen 650 mg PO Q6H PRN 30 Days #240 tab 07/01/20 docusate sodium 100 mg PO BID 30 Days #60 cap 07/01/20 oxycodone 10 mg PO Q6H 7 Days #28 tab 07/01/20 DS: Summary Hospital Course Hospital Course: The patient underwent a successful ORIF right ankle, was transferred to PACU and then to the floor to recover. During their stay, their vitals were stable, afebrile at 97.0. POD 1 he received Physical therapy services. Prior to discharge, Splint clean dry and intact. Plan to be discharged home . Time Spent with Patient Time attestation: Total time spent providing and/or coordinating discharge services: Discharge coordination time: Greater than 30 minutes Physical Exam Vital Signs: Vital Signs: Last Vital Signs Temp 97.0 F 07/01/20 07:21 Pulse 77 07/01/20 07:21 Resp 16 07/01/20 07:21 BP 157/92 H 07/01/20 07:21 Pulse Ox 97 07/01/20 07:21 Body Mass Index 40.4 Const: General: cooperative, healthy appearing and no acute distress Resp: Effort & Inspection: normal respiratory effort and able to speak in co mplete sentences Cardio: Rate: regular rate Peripheral pulses: Peripheral pulses 2+ throughout GI: Palpation (GI): Soft to palpation Skin: General skin exam: no rashes or lesions noted Extrem: Other: right ankle splint intact. Sensation and cap refill to toes. DS: Data Data Completed and Pending Labs on day of discharge: Laboratory Results - last 24 hr 06/30/20 06/30/20 06/30/20 07:16 11:00 16:12 POC Glucose 165 H 190 H 158 H 06/30/20 20:40 POC Glucose 167 H Discharge Plan Discharge Patient Disposition: Home, Self-Care Referrals: Ana Blair PA-C [Physician Application Programmer Analyst] - (07/14/20 10:30) Discharge Medications: New acetaminophen 325 mg Tablet 650 mg PO Q6H PRN (Reason: Pain, Mild (Pain Scale 1-3)) 30 Days Qty: 240 RF: 0 oxycodone 10 mg tablet 10 mg PO Q6H 7 Days Qty: 28 RF: 0 docusate sodium 100 mg Capsule 100 mg PO BID 30 Days Qty: 60 RF: 0 Continued citalopram 40 mg tablet 0.5 tab PO DAILY RF: 0 metformin 1,000 mg tablet 1 tab PO BID RF: 0 albuterol sulfate 90 mcg/actuation HFA aerosol inhaler 2 puff PO Q6H RF: 0 Discharge Orders: Discharge Order (Routine); Ordered 07/01/20 Ordered By: Darell Currie Diet: regular diet Activity on Discharge: Use cane or walker Stand Alone Forms: Patient Portal Discharge page Activity Restrictions/Additional Instructions: * NWB x 6 weeks operative leg * Keep splint clean, dry and intact * Elevate leg above the level of the heart on 3 pillows * Any questions or concerns please call the office NEELA * Follow up with Orthopedics in 2 weeks. Care Plan Goals: Restore function right ankle Health Concerns: None Plan of Treatment: Physical Therapy Pain management DVT prophylaxis Patient Instructions: Ankle Fracture (ED)
[2020-07-01 07:58] LABS: Glucose, Whole Blood 138 mg/dL (60-115)
--- NOTE | 2020-07-01 08:02 | MHC.CM.PN ---
Addendum entered by Mckenzie Peñaloza RN 07/01/20 09:51: PER PHYSICAL THERAPY PT WILL NEED HOME SERVICES, PT WILL NOW D/C AT 1PM TO MOTHERS HOUSE W/[facility] FOR JAIL AND HOME PT, BLS FOR TRANSPORT MOTHER'S ADRESS [address] [place] [id number] Original Note: PT DISCHARGING TODAY HOME-SELF CARE, FAMILY TO TRANSPORT, PT HAS FOLLOW-UP WITH WITH SURGICAL PA ON 07/14/20 AT 10:30AM.
[2020-07-01] MEDS: 0.9 % Sodium Chloride Flush 3 ML SYRINGE IVFLUSH (09:47)
[2020-07-01] MEDS: Docusate Sodium 100 MG CAPSULE PO (09:47)
--- NOTE | 2020-07-01 09:58 | W.MHC.F2F ---
Service Date Service Date: 07/01/20 Reasons for Services Reason for group home: postoperative assessment and/or care Reason for physical therapy: home safety and mobility, therapeutic exercises, gait/transfer training and ADL training Reason for occupational therapy: home safety and mobility, therapeutic exercises, gait/transfer training and ADL training Overseeing Care: Leslie Ramsay Homebound: Leaving the home is medically contraindicated at this time without the asist of a device and/or another person due th the listed conditions above and below. Homebound supporting statement: Pt. is considered home bound due to recent surgery. Unable to drive, poor balance, poor gait mechanics. Certification: Based on the above findings, I certify that this patient is confined to the home and needs intermittent group home care, physical therapy and/or speech therapy, or continues to need occupational therapy. The patient is under my care, and I have initiated the establishment of the plan of care. The patient will be followed by a physician who will periodically review the plan of care.
--- NOTE | 2020-07-01 10:40 | HO.PM.IMPN ---
Subjective Subjective Date of Service: 07/01/20 Interval History: A the patient was seen and evaluated this morning Laying in bed, feels much better today Decreased restless leg at night Denies any fever, chills or shortness of breath No reported other overnight events. Systemic review: No fever, chills or weakness No chest pain, palpitation No shortness of breath or coughing No abdominal pain, nausea or vomiting No urinary symptoms No any rash or wounds Physical Exam Vital Signs: Vital Signs: Last Vital Signs Temp 97.0 F 07/01/20 07:21 Pulse 77 07/01/20 07:21 Resp 16 07/01/20 07:21 BP 157/92 H 07/01/20 07:21 Pulse Ox 97 07/01/20 07:21 Body Mass Index 40.4 Const: Other: Constitutional : Alert, oriented, not in distress Neck : Normal inspection, Supple Cardiovascular : RRR, S1 S2, no lower extremity edema Respiratory : Good bilateral air entry, no crackles, wheezes or rhonchi Gastrointestinal: soft, lax, Normal bowel sounds, Non tender Skin : Warm/Dry, No rash MS: RLE ankle in cast, warm toes Neurological : Alert & oriented x3, No focal deficit Objective Data Current Medications Generic Name Dose Route Start Last Admin Trade Name Freq PRN Reason Stop Dose Admin Acetaminophen 650 mg 06/28/20 09:43 Acetaminophen 325 Mg Tablet PO Q6H PRN Pain, Mild (Pain Scale 1-3) Albuterol Sulfate 2 puff 06/30/20 19:12 Albuterol Sulfate 90 Mcg 8 Gm Inhaler INHALE Q6H PRN shortness od breath Docusate Sodium 100 mg 06/28/20 09:43 07/01/20 09:47 Docusate Sodium 100 Mg Capsule PO 100 mg BID ARMAND Administration Hydromorphone HCl 0.25 mg 06/29/20 14:20 Hydromorphone Hcl 0.5 Mg/0.5 Ml Syringe IVPUSH Q5M PRN Pain, Severe (Pain Scale 7-10) Promethazine HCl 12.5 mg/ 50.5 mls @ 202 mls/hr 06/29/20 14:20 Sodium Chloride IV ONCE PRN Nausea and Vomiting Insulin Human Lispro 0 unit 06/28/20 16:30 07/01/20 08:00 Insulin Lispro 100 Unit/Ml 3 Ml Vial SUBCUT Not Given QIDACHS [facility] Protocol Ketorolac Tromethamine 30 mg 06/29/20 14:20 Ketorolac Tromethamine 30 Mg/Ml Vial IVPUSH ONCE PRN Pain, Moderate (Pain Scale 4-6 Morphine Sulfate 2 mg 06/28/20 09:43 06/29/20 19:48 Morphine Sulfate 2 Mg/Ml Cartridge IVPUSH 2 mg Q2H PRN Administration Pain, Severe (Pain Scale 7-10) Naloxone HCl 0.2 mg 06/28/20 09:43 Naloxone Hcl 0.4 Mg/Ml Vial IVPUSH Q2M PRN Excessive sedation or RR < 8 Ondansetron HCl 4 mg 06/28/20 09:43 06/28/20 09:55 Ondansetron Hcl 4 Mg/2 Ml Vial IVPUSH 4 mg Q8H PRN Administration Nausea Ondansetron HCl 4 mg 06/29/20 14:20 Ondansetron Hcl 4 Mg/2 Ml Vial IVPUSH ONCE PRN Nausea and Vomiting Oxycodone HCl 10 mg 06/28/20 10:00 07/01/20 09:48 Oxycodone Hcl Immed Release 5 Mg Tablet PO Not Given Q6H ARMAND Ropinirole HCl 0.5 mg 06/29/20 21:00 06/30/20 21:04 Ropinirole Hcl 0.5 Mg Tablet PO 0.5 mg BEDTIME ARMAND Administration Sodium Chloride 3 ml 06/28/20 16:00 07/01/20 09:47 0.9 % Sodium Chloride Flush 3 Ml Syringe IVFLUSH 3 ml QSHIFT ARMAND Administration Sodium Chloride 3 ml 06/29/20 16:00 07/01/20 09:48 0.9 % Sodium Chloride Flush 3 Ml Syringe IVFLUSH Not Given QSHIFT [facility] Labs CBC & Chem 7: 06/29/20 06:11 06/29/20 06:11 Assessment and Plan (1) Status post ORIF of fracture of ankle: Status: Acute (2) Obesity: Status: Acute Assessment and Plan: 50-year-old man with history of diabetes mellitus, obesity admitted by Orthopedic surgery for right ankle fracture. He will will be taken to the OR tomorrow for likely ORIF. Ankle fracture Management as per orthopedic team. Diabetes mellitus To restart home medications a time of discharge Obesity. BMI 40.5. Discussed the importance of weight loss to avoid exacerbation of other medical illnesses. Restless leg Continue Roprinole bedtime
[2020-07-01 11:04] VITALS: BP 125/74; PULSE 99; RESP 18; TEMP 36.4; O2SAT 96
[2020-07-01 11:43] LABS: Glucose, Whole Blood 182 mg/dL (60-115)
[2020-07-01] MEDS: Insulin Lispro 100 UNIT/ML 3 ML VIAL SUBCUT (12:21)
[2020-07-01] MEDS: Acetaminophen 325 MG TABLET 650 MG PO (12:22)
== END 2020-07-01 13:10 | disposition home or self-care (01) | DRG 313 ==
LOC: HO.ED 06:55 → HO.EDOVER 08:44 → HO.S3 09:12
PROVIDERS: Physician Assistant; Admitting Provider Orthopaedic Surgery; Emergency Provider Emergency Medicine; PCP Internal Medicine; Visit Provider Orthopaedic Surgery
PROC: 0QSJ04Z Reposition Right Fibula with Internal Fixation Device, Open Approach (ICD-10-PCS; principal; 2020-06-29 12:00)
DX: S82.841A Displaced bimalleolar fracture of right lower leg, initial encounter for closed fracture (principal); Z68.41 Body mass index [BMI] 40.0-44.9, adult; E11.9 Type 2 diabetes mellitus without complications; Z20.822 Contact with and (suspected) exposure to COVID-19; G25.81 Restless legs syndrome; W18.30XA Fall on same level, unspecified, initial encounter; E66.9 Obesity, unspecified; Y93.9 Activity, unspecified; Y92.000 Kitchen of unspecified non-institutional (private) residence as the place of occurrence of the external cause; Y99.9 Unspecified external cause status; Z88.0 Allergy status to penicillin; Z79.84 Long term (current) use of oral hypoglycemic drugs; Z79.899 Other long term (current) drug therapy
CPT/HCPCS: 36415; 73600; 73610; 80048; 82947; 85025; 85610; 85730; 87635; 96374; 96375; 96376; 97162; 97530; 99285; C1713; J0131; J0690; J1170; J2250; J2270; J2370; J2405; J3010

== ENCOUNTER → 2020-07-14 10:30 | Outpatient (BNVA) | payer OTHER, SELFPAY | PROVIDERS: PCP Internal Medicine; Visit Provider Physician Assistant | DX: Z47.89 Encounter for other orthopedic aftercare (principal); Z98.890 Other specified postprocedural states; Z87.81 Personal history of (healed) traumatic fracture | CPT/HCPCS: 99212 ==

== ENCOUNTER 2020-08-04 12:31 | Outpatient (REF) | payer OTHER, SELFPAY ==
--- NOTE | ~2020-08-04 | XR_ITS ---
EXAMINATION: XR ANKLE, RIGHT CLINICAL INFORMATION: Pain right ankle. COMPARISON: Right ankle 06/28/2020 TECHNIQUE: AP, lateral, and mortise views of the right ankle. FINDINGS: The right lateral malleolus stabilized with lateral plate and screws in satisfactory alignment. The ankle mortise joint space is maintained normal. No visible fracture or lytic process. The subtalar joints are normal. There is a small calcaneal heel and retrocalcaneal enthesophytes. The subtalar joints are normal. There is mild dorsal intertarsal spurring. XR/XR ankle RT min 3V IMPRESSION: Stabilized distal fibular fracture with metallic plate and screws. The ankle mortise is stabilized compared to previous study. Small calcaneal heel and retrocalcaneal enthesophytes.
== END 2020-08-04 12:32 | disposition home or self-care (01) ==
LOC: HO.HOSX 12:31
PROVIDERS: PCP Internal Medicine; Visit Provider Orthopaedic Surgery
DX: M25.572 Pain in left ankle and joints of left foot (principal); Z98.890 Other specified postprocedural states; Z87.81 Personal history of (healed) traumatic fracture
CPT/HCPCS: 73610; 99212

== ENCOUNTER 2020-08-25 07:54 | Outpatient (REF) | payer OTHER, SELFPAY ==
--- NOTE | ~2020-08-25 | XR_ITS ---
EXAMINATION: XR ANKLE, RIGHT CLINICAL INFORMATION: Pain right ankle. COMPARISON: Right ankle 08/04/2020 TECHNIQUE: AP, lateral, and mortise views of the right ankle. FINDINGS: There is a lateral fibular plate with anterior and lateral screws stabilizing distal fibular slowly healing fracture with fracture fragments in alignment. Minimal distraction medial ankle joint space is stable compared to previous study. The ankle mortise and subtalar joints are normal. There is a small calcaneal heel and retrocalcaneal enthesophytes. The soft tissues are normal. There is mild bilateral malleolar soft tissue swelling. XR/XR ankle RT min 3V IMPRESSION: Slowly healing oblique distal fibular fracture stabilized with lateral plate and screws. No major change from 08/04/2020. Mild increased space between medial tibia and calcaneus is stable. There is mild bimalleolar soft tissue swelling.
== END 2020-08-25 07:55 | disposition home or self-care (01) ==
LOC: HO.HOSX 07:54
PROVIDERS: Visit Provider Orthopaedic Surgery
DX: M25.571 Pain in right ankle and joints of right foot (principal); Z98.890 Other specified postprocedural states; Z87.81 Personal history of (healed) traumatic fracture
CPT/HCPCS: 73610; 99212

== ENCOUNTER → 2020-09-15 12:16 | Outpatient (BNVA) | payer OTHER, SELFPAY | PROVIDERS: PCP Internal Medicine; Visit Provider Orthopaedic Surgery | DX: Z87.81 Personal history of (healed) traumatic fracture (principal); Z98.890 Other specified postprocedural states | CPT/HCPCS: 99212 ==

== ENCOUNTER 2020-10-29 14:00 | Outpatient (RCR) | payer OTHER, SELFPAY ==
--- NOTE | 2020-09-28 16:25 | MHC.PT.EP ---
[facility] [place] Office [place] Office [place] Office [address] Mayelin Lorenzana [address] [phone] F: [phone] F: [phone] F: [phone] F: [phone] Physical Therapy Plan of Care Date of Evaluation: Date of Surgery: 06/29/20 ORIF R ANKLE Diagnosis: HEALED TRAUMATIC FRACTURE OF R ANKLE Assessment: Pt IS 50 YO M S/P ORIF R ANKLE ON 06/29/20. PRESENTS WITH DECREASED ROM AND STRENGTH R ANKLE WITH SOME SWELLING NOTED AND AFFECTED GT PATTERN (USING ST CANE WITH LIMITED TOE PUSH). 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 HAS BEEN STAYING WITH HIS MOM (WHO LIVES NEXT DOOR ON [address] WHEREAS HIS APT IS ON [address])IS DRIVING HIS CAR NOW. GOOD PT CANDIDATE TO ADDRESS THESE ISSUES Frequency and Duration: The patient will be seen 2X/WK X 6 WKS Short Term Goals: 1. Pt TO PERF STAIRS WITH RAIL AND CANE SO TO BE ABLE TO MOVE BACK HOME 2. INCREASED AWARENESS ANKLE CARE 3. IMPROVED GT PATTERN WITH CANE/NO AD Jail Goals: 1. INCREASED R ANKLE ROM AT LEAST 5 DEGREES T/O 2. 5/5 MM STRENGTH R ANKLE DF/PF/INV EV 3. LESS SWELLING REPORTED/NOTED 4.I HEP WITH DC EX PLAN 5. RTW 6. IMPROVED LEFI Treatment Plan: Modalities to reduce pain, spasms and effusion. Manual therapy to restore motion and function. Therapeutic exercise to improve strength and flexibility. Neuromuscular re-education for posture and balance. Therapeutic activities to return to functional activities of daily living. Electronically signed by: FAZAL AZAR PT Please sign and return to therapist. Thank you for your referral.
--- NOTE | 2020-11-16 15:09 | MHC.PT.DC ---
[facility] [place] Office [place] Office [place] Office [address] Mayelin Lorenzana [address] [phone] F: [phone] F: [phone] F: [phone] F: [phone] Physical Therapy Discharge Report Diagnosis: HEALED TRAUMATIC FRACTURE OF R ANKLE Date of Surgery: 06/29/20 ORIF R ANKLE Date of Evaluation: 09/28/20 Date of Discharge: 10/29/20 Treatments to Date: 6 Cancellations to Date: No Shows to Date: Discharge Status: Achieved Goals Improved Function Independent with HEP Discharge Summary: PER LAST NOTE BY JC [facility] REGISTERED NURSE BEH[facility]:Pt able to lee ann all progressed CKC exercises and has increased endurance with these activities before fatigue. Pt able to continue to progress step height with no instance of instability or pain. Pt agreeable to d/c to I with HEP today. Electronically signed by: FAZAL AZAR PT Please sign and return to therapist. Thank you for your referral.
== END 2020-11-16 15:13 | disposition home or self-care (01) ==
LOC: HO.PT 14:00
PROVIDERS: PCP Internal Medicine; Visit Provider Orthopaedic Surgery
DX: Z98.890 Other specified postprocedural states (principal); Z87.81 Personal history of (healed) traumatic fracture
CPT/HCPCS: 97110; 97112; 97116; 97161; 97530